=== PATIENT | female | born 1980 | race Caucasian/White ===

== ENCOUNTER 2018-08-04 15:01 | Emergency (ER) | payer OTHER ==
[2018-08-04] MEDS ORDERED: Ondansetron 4 MG Tab.DIS PO ONE (15:37)
[2018-08-04] MEDS ORDERED: HYDROmorphone 1 MG/ML Syringe IM ONE (15:38)
[2018-08-04] MEDS ORDERED: Tamsulosin 0.4 MG Cap.ER PO ONE (15:38)
--- NOTE | 2018-08-04 15:53 | EDM.PDOC ---
<Stacey Metz - Last Filed: 08/04/18 17:02> ED HPI GENERAL MEDICAL PROBLEM - General Chief Complaint: Genitourinary Problem Stated Complaint: ABDOMINAL PAIN Time Seen by Provider: 08/04/18 15:20 Source of Information: Reports: Patient History Limitations: Reports: No Limitations - History of Present Illness INITIAL COMMENTS - FREE TEXT/NARRATIVE: HISTORY AND PHYSICAL: History of present illness: 37-year-old female presents to the emergency room with left flank pain onset this morning. He indicates a history of kidney stones and often passes small kidney stones on her own. Has had one kidney stone that did need the lithotripsy procedure. Last kidney stone attack was over a year ago. She has felt nauseous however no throwing up and pain is localized to the left flank. Review of systems: As per history of present illness and below otherwise all systems reviewed and negative. Past medical history: As per history of present illness and as reviewed below otherwise noncontributory. Surgical history: As per history of present illness and as reviewed below otherwise noncontributory. Social history: No reported history of drug or alcohol abuse. Family history: As per history of present illness and as reviewed below otherwise noncontributory. Physical exam: General: 37-year-old well-developed well-nourished female. Alert and oriented. He is in mild discomfort rocking back and forth on cart due to pain to the left flank area. HEENT: Atraumatic, normocephalic, pupils reactive, negative for conjunctival pallor or scleral icterus, mucous membranes moist, throat clear, neck supple, nontender, trachea midline. Lungs: Clear to auscultation, breath sounds equal bilaterally, chest nontender. Heart: S1S2, regular, negative for clicks, rubs, or JVD. Abdomen: Soft, nondistended, tender to the left flank area. Negative for masses or hepatosplenomegaly. Pelvis: Stable nontender. Genitourinary: Deferred. Rectal: Deferred. Extremities: Atraumatic, negative for cords or calf pain. Neurovascular unremarkable. Skin: Intact, warm, dry. No lesions, rashes are noted. Neuro: Awake, alert, oriented. Cranial nerves II through XII unremarkable. Cerebellum unremarkable. Motor and sensory unremarkable throughout. Exam nonfocal. Notes: CT shows several small nonobstructing stones bilaterally. CT scan is unremarkable. Lab work is unremarkable. She states she is out of her Flomax at this time, will give a 10 day supply. She did find relief with the IM Dilaudid. Is requesting additional pain medication. We'll give her prescription for 10 tablets of tramadol. We discussed the need for follow-up with urology and supportive care measures at home. She voices understanding and is agreeable to plan of care. Denies any further questions or concerns at this time. Diagnostics: CT abdomen and pelvis without contrast CBC, UA, CMP, urine PG Therapeutics: Dilaudid Zofran Flomax Impression: Bilateral renal kidney stone Left flank pain Plan: 1. Increase her oral fluids. Continue taking her Flomax once daily. 2. Tylenol and/or ibuprofen as needed for pain management. Tramadol for moderate to severe pain. This medication may cause drowsiness do not take a lot of driving her needing to be functioning at the house. 3. Follow up with urology as we discussed. Return to the ED as needed and as discussed. Definitive disposition and diagnosis as appropriate pending reevaluation and review of above. left flank, abodmen Pain Score (Numeric/FACES): 6 - Related Data Allergies Allergy/AdvReac Type Severity Reaction Status Date / Time ketorolac [From Toradol] Allergy Hives Verified 08/04/18 15:16 metoclopramide [From Reglan] Allergy Anxiety Verified 08/04/18 15:16 NSAIDS (Non-Steroidal Allergy Hives Verified 08/04/18 15:16 Anti-Inflamma prochlorperazine Allergy Anxiety Verified 08/04/18 15:16 [From Compazine] Home Meds: Home Meds QUEtiapine [SEROquel] 25 mg PO DAILY PRN 08/04/18 [History] Tamsulosin HCl [Flomax] 0.4 mg PO DAILY 10 Days #10 cap 08/04/18 [Rx] traMADol [Ultram] 50 mg PO Q4H PRN #10 tab 08/04/18 [Rx] Past Medical History Genitourinary History: Reports: Renal Calculus, Other (See Below) Other Genitourinary History: polycystic kidney disease, medullary sponge disease - Past Surgical History Male Surgical History: Reports: Lithotripsy ([facility]) Social & Family History - Family History Family Medical History: Noncontributory - Tobacco Use Smoking Status *Q: Current Every Day Smoker Years of Tobacco use: 15 Packs/Tins Daily: 0.1 - Recreational Drug Use Recreational Drug Use: No ED ROS GENERAL - Review of Systems Review Of Systems: ROS reveals no pertinent complaints other than HPI. ED EXAM, RENAL/ - Physical Exam Exam: See Below (See dictation) Course - Vital Signs Last Recorded V/S: Last Vital Signs Temp 96.9 F 08/04/18 15:14 Pulse 102 H 08/04/18 17:15 Resp 20 08/04/18 17:15 BP 130/76 08/04/18 17:15 Pulse Ox 98 08/04/18 17:15 - Orders/Labs/Meds Labs: Laboratory Tests 08/04/18 08/04/18 08/04/18 Range/Units 15:20 15:20 15:20 WBC 12.24 H (4.0-11.0) K/uL RBC 4.87 (4.50-5.90) M/uL Hgb 15.2 (13.0-17.0) g/dL Hct 44.8 (38.0-50.0) % MCV 92.0 (80.0-98.0) fL MCH 31.2 (27.0-32.0) pg MCHC 33.9 (31.0-37.0) g/dL RDW Std Deviation 44.3 (28.0-62.0) fl RDW Coeff of Andre 13 (11.0-15.0) % Plt Count 389 (150-400) K/uL MPV 9.80 (7.40-12.00) fL Neut % (Auto) 70.5 (48.0-80.0) % Lymph % (Auto) 22.5 (16.0-40.0) % [place] % (Auto) 5.4 (0.0-15.0) % Eos % (Auto) 1.3 (0.0-7.0) % Baso % (Auto) 0.3 (0.0-1.5) % Neut # (Auto) 8.6 H (1.4-5.7) K/uL Lymph # (Auto) 2.8 H (0.6-2.4) K/uL [place] # (Auto) 0.7 (0.0-0.8) K/uL Eos # (Auto) 0.2 (0.0-0.7) K/uL Baso # (Auto) 0.0 (0.0-0.1) K/uL Nucleated RBC % 0.0 /100WBC Nucleated RBCs # 0 K/uL Sodium 144 (136-145) mmol/L Potassium 3.8 (3.5-5.1) mmol/L Chloride 108 H (98-107) mmol/L Carbon Dioxide 25.9 (21.0-32.0) mmol/L BUN 7 (7.0-18.0) mg/dL Creatinine 0.8 (0.6-1.0) mg/dL Est Cr Clr Drug Dosing 69.16 mL/min Estimated GFR (MDRD) > 60.0 ml/min Glucose 113 H (74-106) mg/dL Calcium 8.8 (8.5-10.1) mg/dL Total Bilirubin 0.2 (0.2-1.0) mg/dL AST 14 L (15-37) IU/L ALT 14 (14-63) IU/L Alkaline Phosphatase 72 (46-116) U/L Total Protein 7.4 (6.4-8.2) g/dL Albumin 3.9 (3.4-5.0) g/dL Globulin 3.5 (2.6-4.0) g/dL Albumin/Globulin Ratio 1.1 (0.9-1.6) HCG, Qual NEGATIVE (NEG) Urine Color Urine Appearance Urine pH (5.0-8.0) Ur Specific [place] (1.001-1.035) Urine Protein (NEGATIVE) mg/dL Urine Glucose (UA) (NEGATIVE) mg/dL Urine Ketones (NEGATIVE) mg/dL Urine Occult Blood (NEGATIVE) Urine Nitrite (NEGATIVE) Urine Bilirubin (NEGATIVE) Urine Urobilinogen (<2.0) EU/dL Ur Leukocyte Esterase (NEGATIVE) Urine RBC (0-2/HPF) Urine WBC (0-5/HPF) Ur Epithelial Cells (NONE-FEW) Urine Bacteria (NEGATIVE) 08/04/18 Range/Units 15:58 WBC (4.0-11.0) K/uL RBC (4.50-5.90) M/uL Hgb (13.0-17.0) g/dL Hct (38.0-50.0) % MCV (80.0-98.0) fL MCH (27.0-32.0) pg MCHC (31.0-37.0) g/dL RDW Std Deviation (28.0-62.0) fl RDW Coeff of Andre (11.0-15.0) % Plt Count (150-400) K/uL MPV (7.40-12.00) fL Neut % (Auto) (48.0-80.0) % Lymph % (Auto) (16.0-40.0) % [place] % (Auto) (0.0-15.0) % Eos % (Auto) (0.0-7.0) % Baso % (Auto) (0.0-1.5) % Neut # (Auto) (1.4-5.7) K/uL Lymph # (Auto) (0.6-2.4) K/uL [place] # (Auto) (0.0-0.8) K/uL Eos # (Auto) (0.0-0.7) K/uL Baso # (Auto) (0.0-0.1) K/uL Nucleated RBC % /100WBC Nucleated RBCs # K/uL Sodium (136-145) mmol/L Potassium (3.5-5.1) mmol/L Chloride (98-107) mmol/L Carbon Dioxide (21.0-32.0) mmol/L BUN (7.0-18.0) mg/dL Creatinine (0.6-1.0) mg/dL Est Cr Clr Drug Dosing mL/min Estimated GFR (MDRD) ml/min Glucose (74-106) mg/dL Calcium (8.5-10.1) mg/dL Total Bilirubin (0.2-1.0) mg/dL AST (15-37) IU/L ALT (14-63) IU/L Alkaline Phosphatase (46-116) U/L Total Protein (6.4-8.2) g/dL Albumin (3.4-5.0) g/dL Globulin (2.6-4.0) g/dL Albumin/Globulin Ratio (0.9-1.6) HCG, Qual (NEG) Urine Color PINK Urine Appearance SLT CLOUDY Urine pH 7.5 (5.0-8.0) Ur Specific [place] 1.015 (1.001-1.035) Urine Protein NEGATIVE (NEGATIVE) mg/dL Urine Glucose (UA) NEGATIVE (NEGATIVE) mg/dL Urine Ketones NEGATIVE (NEGATIVE) mg/dL Urine Occult Blood LARGE H (NEGATIVE) Urine Nitrite NEGATIVE (NEGATIVE) Urine Bilirubin NEGATIVE (NEGATIVE) Urine Urobilinogen 0.2 (<2.0) EU/dL Ur Leukocyte Esterase NEGATIVE (NEGATIVE) Urine RBC TOO NUMEROUS TO CT H (0-2/HPF) Urine WBC 0-2 (0-5/HPF) Ur Epithelial Cells OCCASIONAL (NONE-FEW) Urine Bacteria RARE (NEGATIVE) Meds: Medications Discontinued Medications Generic Name Dose Route Start Last Admin Trade Name Freq PRN Reason Stop Dose Admin Hydromorphone HCl 1 mg 08/04/18 15:38 08/04/18 15:59 Dilaudid IM 08/04/18 15:39 1 mg ONETIME ONE Administration Ondansetron HCl 4 mg 08/04/18 15:37 08/04/18 15:59 Zofran Odt PO 08/04/18 15:38 4 mg ONETIME ONE Administration Tamsulosin HCl 0.4 mg 08/04/18 15:38 08/04/18 15:59 Flomax PO 08/04/18 15:39 0.4 mg ONETIME ONE Administration Departure - Departure Time of Disposition: 17:04 Disposition: Home, Self-Care 01 Clinical Impression: Kidney stone, Left flank pain - Discharge Information Prescriptions: Tamsulosin HCl [Flomax] 0.4 mg PO DAILY 10 Days #10 cap traMADol [Ultram] 50 mg PO Q4H PRN #10 tab PRN Reason: Pain Instructions: Kidney Stones, [id number] Referrals: PCP,None [Primary Care Provider] - Forms: ED Department Discharge Additional Instructions: My general discharge The following information is given to patients seen in the emergency department who are being discharged to home. This information is to outline your options for follow-up care. We provide all patients seen in our emergency department with a follow-up referral. The need for follow-up, as well as the timing and circumstances, are variable depending upon the specifics of your emergency department visit. If you don't have a primary care physician on staff, we will provide you with a referral. We always advise you to contact your personal physician following an emergency department visit to inform them of the circumstance of the visit and for follow-up with them and/or the need for any referrals to a consulting specialist. The emergency department will also refer you to a specialist when appropriate. This referral assures that you have the opportunity for follow-up care with a specialist. All of these measure are taken in an effort to provide you with optimal care, which includes your follow-up. Under all circumstances we always encourage you to contact your private physician who remains a resource for coordinating your care. When calling for follow-up care, please make the office aware that this follow-up is from your recent emergency room visit. If for any reason you are refused follow-up, please contact the [facility] Emergency Department at and asked to speak to the emergency department charge nurse. My Primary Care [facility] - Primary Care [address] [place] [id number] 1. Increase her oral fluids. Continue taking her Flomax once daily. 2. Tylenol and/or ibuprofen as needed for pain management. Tramadol for moderate to severe pain. This medication may cause drowsiness do not take a lot of driving her needing to be functioning at the house. 3. Follow up with urology as we discussed. Return to the ED as needed and as discussed. <Neha Fortune E - Last Filed: 08/04/18 19:52> ED HPI GENERAL MEDICAL PROBLEM - History of Present Illness INITIAL COMMENTS - FREE TEXT/NARRATIVE: I have physically assess this patient myself and agree with the above findings. Please note patient denies any fever, chills, headache, change in vision, syncope or near syncope. Denies any chest pain, back pain, shortness of breath or cough. Denies any vomiting, diarrhea, constipation or dysuria. Has not noted any blood in urine or stool. Patient has been eating and drinking appropriately. Patient declined IV fluids stating she has been drinking large amounts at home. Diagnostic findings were shared with the patient. Encouraged her to follow-up with urology
[2018-08-04 15:56] LABS: CHLORIDE,CL 108 mmol/L (98-107); SODIUM,NA 144 mmol/L (136-145)
--- NOTE | 2018-08-04 16:36 | CT ---
CT of the abdomen and pelvis without contrast. HISTORY: Left flank pain TECHNIQUE: Axial CT images were obtained of the abdomen and pelvis without contrast. Coronal and sagittal reconstructions obtained. FINDINGS: The lung bases are clear, no pleural effusion. The liver, spleen, adrenal glands, and pancreas appear unremarkable for noncontrast examination. The gallbladder appears normal. There is no bulky retroperitoneal lymphadenopathy. No abdominal ascites. Several small nonobstructing nephrolithiasis bilaterally. No evidence of obstructive uropathy. The large and small bowel are normal in caliber without evidence of obstruction. The appendix appears normal. There is no bulky pelvic lymphadenopathy. No free fluid. No free air. The urinary bladder appears normal. The visualized osseous structures appear normal. IMPRESSION: 1. No acute findings within the abdomen or pelvis. 2. Small nonobstructing lithiasis bilaterally.
== END 2018-08-04 17:18 | disposition home or self-care (01) ==
LOC: EDSEX 15:01 → MW.ED 15:01
DX: N20.0 Calculus of kidney (principal); R10.9 Unspecified abdominal pain; F17.210 Nicotine dependence, cigarettes, uncomplicated; Z88.6 Allergy status to analgesic agent; Z88.8 Allergy status to other drugs, medicaments and biological substances; Z79.899 Other long term (current) drug therapy; Z87.442 Personal history of urinary calculi
CPT/HCPCS: 36415; 74176; 80053; 81001; 84703; 85025; 96372; 99284; A9270; J1170

== ENCOUNTER 2018-08-05 17:21 | Emergency (ER) | payer OTHER ==
[2018-08-05] MEDS ORDERED: Sodium Chloride 0.9% 1,000 ML IV ONE (17:44)
[2018-08-05] MEDS ORDERED: Ondansetron 4 MG/2 ML SDV IVPUSH ONE (17:44)
[2018-08-05] MEDS ORDERED: Tamsulosin 0.4 MG Cap.ER PO ONE (17:45)
--- NOTE | 2018-08-05 17:50 | EDM.PDOC ---
ED HPI GENERAL MEDICAL PROBLEM - General Chief Complaint: Flank Pain Stated Complaint: STOMACH PAIN Time Seen by Provider: 08/05/18 17:40 - History of Present Illness INITIAL COMMENTS - FREE TEXT/NARRATIVE: HISTORY AND PHYSICAL: History of present illness: Patient is a 37-year-old female with history of nephrolithiasis was seen 1 day prior for nephrolithiasis which was no ureterolithiasis or obstruction who presents again with the same pain as yesterday who is from out of town currently here with the [facility] [employer] as an employee in allergic to all nonsteroidal anti-inflammatory drugs. There's been no fever no chills she's had nausea with vomiting she is declining CT scanning for appropriate reasons. Review of systems: As per history of present illness and below otherwise all systems reviewed and negative. Past medical history: As per history of present illness and as reviewed below otherwise noncontributory. Surgical history: As per history of present illness and as reviewed below otherwise noncontributory. Social history: No reported history of drug or alcohol abuse. Family history: As per history of present illness and as reviewed below otherwise noncontributory. Physical exam: HEENT: Atraumatic, normocephalic, pupils reactive, negative for conjunctival pallor or scleral icterus, mucous membranes moist, throat clear, neck supple, nontender, trachea midline. Lungs: Clear to auscultation, breath sounds equal bilaterally, chest nontender. Heart: S1S2, regular, negative for clicks, rubs, or JVD. Abdomen: Soft, nondistended, nontender. Negative for masses or hepatosplenomegaly. Negative for costovertebral tenderness. Pelvis: Stable nontender. Genitourinary: Deferred. Rectal: Deferred. Extremities: Atraumatic, negative for cords or calf pain. Neurovascular unremarkable. Neuro: Awake, alert, oriented. Cranial nerves II through XII unremarkable. Cerebellum unremarkable. Motor and sensory unremarkable throughout. Exam nonfocal. Diagnostics: CBC CMP UA hCG Therapeutics: Saline 1 L bolus Zofran 4 mg IV Impression: #1 history of nephrolithiasis #2 medical screening exam Definitive disposition and diagnosis as appropriate pending reevaluation and review of above. left flank Pain Score (Numeric/FACES): 8 - Related Data Allergies Allergy/AdvReac Type Severity Reaction Status Date / Time ketorolac [From Toradol] Allergy Hives Verified 08/05/18 17:41 metoclopramide [From Reglan] Allergy Anxiety Verified 08/05/18 17:41 NSAIDS (Non-Steroidal Allergy Hives Verified 08/05/18 17:41 Anti-Inflamma prochlorperazine Allergy Anxiety Verified 08/05/18 17:41 [From Compazine] Home Meds: Home Meds QUEtiapine [SEROquel] 25 mg PO DAILY PRN 08/04/18 [History] Tamsulosin HCl [Flomax] 0.4 mg PO DAILY 10 Days #10 cap 08/04/18 [Rx] traMADol [Ultram] 50 mg PO Q4H PRN #10 tab 08/04/18 [Rx] Past Medical History Genitourinary History: Reports: Renal Calculus, Other (See Below) Other Genitourinary History: polycystic kidney disease, medullary sponge disease - Past Surgical History Male Surgical History: Reports: Lithotripsy ([facility]) Social & Family History - Family History Family Medical History: Noncontributory ED ROS GENERAL - Review of Systems Review Of Systems: ROS reveals no pertinent complaints other than HPI. ED EXAM, GENERAL - Physical Exam Exam: See Below (See dictation) Course - Vital Signs Last Recorded V/S: Last Vital Signs Temp Pulse 118 H 08/05/18 17:42 Resp 18 08/05/18 17:42 BP 123/87 08/05/18 17:42 Pulse Ox 98 08/05/18 17:42 - Orders/Labs/Meds Orders: Active Orders 24 hr Category Date Time Status CBC WITH AUTO DIFF [HEME] Stat Lab 08/05/18 17:45 Ordered CMP [COMPREHENSIVE METABOLIC PN,CMP] [CHEM] Stat Lab 08/05/18 17:45 Ordered UA W/MICROSCOPIC [URIN] Stat Lab 08/05/18 17:45 Ordered Ondansetron [Zofran] Med 08/05/18 17:44 Once 4 mg IVPUSH ONETIME ONE Sodium Chloride 0.9% [Normal Saline] 1,000 ml Med 08/05/18 17:44 Active IV .Bolus Tamsulosin [Flomax] Med 08/05/18 17:45 Once 0.4 mg PO ONETIME ONE Medication Orders Sodium Chloride (Normal Saline) 1,000 mls @ 999 mls/hr IV .Bolus ONE Stop: 08/05/18 18:44 Ondansetron HCl (Zofran) 4 mg IVPUSH ONETIME ONE Stop: 08/05/18 17:45 Tamsulosin HCl (Flomax) 0.4 mg PO ONETIME ONE Stop: 08/05/18 17:46 Meds: Medications Generic Name Dose Route Start Last Admin Trade Name Alix PRN Reason Stop Dose Admin Sodium Chloride 1,000 mls @ 999 mls/hr 08/05/18 17:44 Normal Saline IV 08/05/18 18:44 .Bolus ONE Ondansetron HCl 4 mg 08/05/18 17:44 Zofran IVPUSH 08/05/18 17:45 ONETIME ONE Tamsulosin HCl 0.4 mg 08/05/18 17:45 Flomax PO 08/05/18 17:46 ONETIME ONE Departure - Departure Time of Disposition: 17:48 Disposition: Home, Self-Care 01 Condition: Good Clinical Impression: Nephrolithiasis, Encounter for medical screening examination - Discharge Information Referrals: PCP,None [Primary Care Provider] - Additional Instructions: The following information is given to patients seen in the emergency department who are being discharged to home. This information is to outline your options for follow-up care. We provide all patients seen in our emergency department with a follow-up referral. The need for follow-up, as well as the timing and circumstances, are variable depending upon the specifics of your emergency department visit. If you don't have a primary care physician on staff, we will provide you with a referral. We always advise you to contact your personal physician following an emergency department visit to inform them of the circumstance of the visit and for follow-up with them and/or the need for any referrals to a consulting specialist. The emergency department will also refer you to a specialist when appropriate. This referral assures that you have the opportunity for followup care with a specialist. All of these measure are taken in an effort to provide you with optimal care, which includes your followup. Under all circumstances we always encourage you to contact your private physician who remains a resource for coordinating your care. When calling for followup care, please make the office aware that this follow-up is from your recent emergency room visit. If for any reason you are refused follow-up, please contact the [facility] emergency department at and asked to speak to the emergency department charge nurse. Continue current medications push fluids follow-up with urology below call to schedule routine appointment return as needed as discussed [facility] Specialty Care - Urology [address] [place] [id number] - My Orders Last 24 Hours: My Active Orders 08/05/18 17:44 Ondansetron [Zofran] 4 mg IVPUSH ONETIME ONE Sodium Chloride 0.9% [Normal Saline] 1,000 ml IV .Bolus 08/05/18 17:45 CBC WITH AUTO DIFF [HEME] Stat CMP [COMPREHENSIVE METABOLIC PN,CMP] [CHEM] Stat UA W/MICROSCOPIC [URIN] Stat Tamsulosin [Flomax] 0.4 mg PO ONETIME ONE - Assessment/Plan Last 24 Hours: My Active Orders 08/05/18 17:44 Ondansetron [Zofran] 4 mg IVPUSH ONETIME ONE Sodium Chloride 0.9% [Normal Saline] 1,000 ml IV .Bolus 08/05/18 17:45 CBC WITH AUTO DIFF [HEME] Stat CMP [COMPREHENSIVE METABOLIC PN,CMP] [CHEM] Stat UA W/MICROSCOPIC [URIN] Stat Tamsulosin [Flomax] 0.4 mg PO ONETIME ONE
== END 2018-08-05 17:50 | disposition home or self-care (01) ==
LOC: MW.ED 17:21
DX: N20.0 Calculus of kidney (principal); Z88.8 Allergy status to other drugs, medicaments and biological substances; Z88.5 Allergy status to narcotic agent; Z79.899 Other long term (current) drug therapy
CPT/HCPCS: 99283